=== PATIENT | female | born 1975 | race Caucasian/White ===

== ENCOUNTER 2020-04-26 14:24 | Emergency (ER) | payer SELFPAY ==
[~2020-04-26] VITALS: Ht 157.5 cm; Wt 76.2 kg
[2020-04-26 14:24] VITALS: BP 124/87
[2020-04-26 14:27] VITALS: BP 118/72
[2020-04-26] MEDS ORDERED: NACL 0.9% 500 ML IV ONE (14:40)
--- NOTE | 2020-04-26 14:45 | NUR ---
Straight catheter placed, waiting for urine output at this time.
--- NOTE | 2020-04-26 14:50 | NUR ---
[place] [employer] Officer Michael is evaluating the patient for 5150 hold at bedside.
--- NOTE | 2020-04-26 14:51 | NUR ---
Spoke to Ye from Poison Control--keep patient on seizure precautions, watch for respiratory depression, treat hypotension with IV fluids, initial EKG and repeat in 4 hours
--- NOTE | 2020-04-26 14:54 | NUR ---
Performed COVID MATILDE swab, walked to lab.
[2020-04-26 15:54] LABS: BASOPHILS # (AUTO) 0.1 K/uL (0.00-0.22); BASOPHILS % (AUTO) 0.7 % (0.0-2.0); EOSINOPHILS # (AUTO) 0.1 K/uL (0-0.4); EOSINOPHILS % (AUTO) 0.8 % (0.0-4.0); HEMATOCRIT 35.8 % (36-48); HEMOGLOBIN 11.7 g/dL (12.0-16.0); LYMPHOCYTES # (AUTO) 2.3 K/uL (2.5-16.5); LYMPHOCYTES % (AUTO) 19.7 % (20.5-51.1); MEAN CORPUSCULAR HEMOGLOBIN 28 pg (27-31); MEAN CORPUSCULAR HGB CONC 33 g/dL (33-37); MEAN CORPUSCULAR VOLUME 84.5 fL (80-94); MONOCYTES # (AUTO) 0.6 K/uL (0.8-1.0); MONOCYTES % (AUTO) 5.1 % (1.7-9.3); NEUTROPHILS # (AUTO) 8.5 K/uL (1.8-7.7); NEUTROPHILS % (AUTO) 73.7 % (42.2-75.2); PLATELET COUNT (AUTO) 387 K/uL (140-450); RED BLOOD CELL COUNT(AUTO) 4.23 MIL/uL (4.20-5.40); RED CELL DISTRIBUTION WIDTH 14.4 % (11.6-13.7); WHITE BLOOD COUNT (AUTO) 11.5 K/uL (4.8-10.8)
--- NOTE | 2020-04-26 15:54 | NUR ---
Urine visible in straight cath collection bag, walked specimen to lab.
--- NOTE | 2020-04-26 16:14 | NUR ---
Pt sleeping, eyes closed, HOB elevated bed in lowest position. VSS, will continue to monitor.
[2020-04-26 16:15] LABS: ALBUMIN 3.5 g/dL (3.4-5.0); ANION GAP 12.6 (8-16); ASPARTATE AMINOTRANSFERASE 20 U/L (15-37); CARBON DIOXIDE 25.1 mmol/L (21-32); CHLORIDE 105 mmol/L (98-107); GFR ARICAN-AMERICAN 78 mL/min (>90); GLUCOSE 142 mg/dL (74-106); POTASSIUM 3.7 mmol/L (3.5-5.1); SODIUM SERUM 139 mmol/L (136-145); TOTAL BILIRUBIN 0.6 mg/dL (0.0-1.0); UREA NITROGEN, BLOOD 12 mg/dL (7-18)
[2020-04-26 16:18] LABS: SALICYLATE < 2.8 mg/dL (2.8-20.0)
[2020-04-26 16:19] LABS: ACETAMINOPHEN < 0.5 ug/ml (10-30)
--- NOTE | 2020-04-26 16:33 | NUR ---
Pt taken to CT via [facility].
--- NOTE | 2020-04-26 16:46 | NUR ---
Pt brought back to ER bed 6 via asif.
[2020-04-26 17:22] LABS: BARBITURATE, URINE NEGATIVE ng/ml (NEG <=200); BENZODIAZEPINE, URINE POSITIVE ng/mL (NEG <=200); CANNABINOID, URINE NEGATIVE ng/mL (NEG <=50); COCAINE, URINE NEGATIVE ng/mL (NEG <=300); OPIATE, URINE NEGATIVE ng/mL (NEG <=2000); PHENCYCLIDINE SCREEN,URINE NEGATIVE ng/mL (NEG <=25)
--- NOTE | 2020-04-26 18:40 | NUR ---
Pt eyes closed, equal rise and fall of chest, VSS, will continue to monitor.
--- NOTE | 2020-04-26 19:16 | NUR ---
GAVE REPORT TO RICHARDSON ROBBINS, TRANSFERED ALL CARE AT THIS TIME.
--- NOTE | 2020-04-26 19:18 | NUR ---
SPOKE WITH LEXA QUINONES, PT FOR UPDATES. [phone]
--- NOTE | 2020-04-26 19:35 | NUR ---
REPORT RECEIVED FROM ALEXIA BAI
--- NOTE | 2020-04-26 19:49 | NUR ---
PT WAS AWAKE AND ASKING WHAT HAPPENED AND WHY SHE IS HERE, PT SAID SHE HAD A HEADACHE AND WAS TIRED, DENIES TRTING TO OVERDOSE. SHE DOES ADMIT TO PROBLEMS AT HOME. PT REMAINS ON BEDSIDE MONITOR.
--- NOTE | 2020-04-26 23:55 | NUR ---
PT REQUESTING PHONE TO CALL HER FAMILY AND ASKING FOR MED FOR HER ANXIETY. PT PROVIDED WITH PHONE AND MD FERNANDEZ AWARE OF PT'S REQUEST FOR ANTIANXIETY MED
--- NOTE | 2020-04-26 23:57 | NUR ---
SPOKE TO RANDEE FROM [facility]. UPDATED HIM ON PT'S CURRENT STATUS, LABS, AND VITALS. HE SAYS THEY ARE GOING TO CLEAR PT AT THIS TIME.
--- NOTE | 2020-04-27 01:23 | NUR ---
PT SLEEPING. RESPIRATIONS REGULAR EVEN AND UNLABORED
--- NOTE | 2020-04-27 03:04 | NUR ---
PT SLEEPING, RESPIRATIONS REGULAR EVEN AND UNLABORED. PT REMAINS ON BESIDE MONITOR
[2020-04-27] MEDS ORDERED: KETOROLAC 15 MG/ML VIAL IVP ONE (03:55)
[2020-04-27] MEDS ORDERED: ACETAMINOPHEN 325 MG TAB PO ONE (03:55)
--- NOTE | 2020-04-27 04:06 | NUR ---
PT C/O 01/28 BACK PAIN, PAIN NOT ALLOWING HER TO SLEEP, PT STATES HX OF BACK PAIN. MD EUCEDA AWARE, NEW ORDER RECEIVED
--- NOTE | 2020-04-27 04:48 | NUR ---
Note caridad in [facility] - 04/27/20 at 0450 by [email or web address] PT SLEEPING AT THIS TIME. NO DISTRESS NOTED
--- NOTE | 2020-04-27 05:09 | NUR ---
PT'S BRYCE CHENEY, CALLED WANTING AN UPDATE ON PT. SPOKE WITH PT AND SHE DOES NOT WANT BRYCE OR JEVON AND EMERSON LEARY TO BE GIVEN ANY INFO OR UPDATE REGARDING HERSELF OR HER CARE.
[2020-04-27] MEDS ORDERED: diazePAM 5 MG TAB PO ONE (05:35)
--- NOTE | 2020-04-27 05:48 | NUR ---
PT TEARFUL AND UPSET. PT SPOKE WITH MD EUCEDA AND REQUESTED ANTIANXIETY MED. NEW ORDER RECEIVED.
--- NOTE | 2020-04-27 07:15 | NUR ---
Pt report given to ALEXIA BAI. Transfer of care at this time.
--- NOTE | 2020-04-27 07:16 | NUR ---
Received report from RICHARDSON Barahona, care transfered to dc at this time.
--- NOTE | 2020-04-27 07:21 | NUR ---
Pt resting, A&OX4, appropriate, VSS, will continue to monitor.
[2020-04-27] MEDS ORDERED: LORazepam 1 MG TAB PO ONE (07:55)
--- NOTE | 2020-04-27 09:16 | NUR ---
Pt given breakfast tray, seated upright positioned for comfort. VSS
--- NOTE | 2020-04-27 10:34 | NUR ---
[facility] still aware of pt and still assisiting with placement
--- NOTE | 2020-04-27 10:35 | NUR ---
No beds at the following facilitties: [facility]
[2020-04-27 10:41] VITALS: BP 103/64
--- NOTE | 2020-04-27 10:41 | NUR ---
Patient discharged with v/s stable. Written and verbal after care instructions given and explained. Patient verbalized understanding. Ambulatory with steady gait. All questions addressed prior to discharge. Advised to follow up with PMD.
== END 2020-04-27 10:41 | disposition home or self-care (01) ==
LOC: MED 14:24
DX: T45.0X1A Poisoning by antiallergic and antiemetic drugs, accidental (unintentional), initial encounter (principal); F41.9 Anxiety disorder, unspecified; Y92.89 Other specified places as the place of occurrence of the external cause
CPT/HCPCS: 36415; 70450; 80053; 80305; 85025; 87426; 93005; 96374; 99285; G0480; G0482; J1885; J7030